=== PATIENT | male | born 1985 | race Caucasian/White ===

== ENCOUNTER 2022-10-23 16:48 | Emergency (ER) | payer OTHER ==
[~2022-10-23] VITALS: Ht 172.7 cm; Wt 92.5 kg
[2022-10-23 17:01] VITALS: BP 127/89; PULSE 72; RESP 18; TEMP 98.7; O2SAT 98
[2022-10-23] MEDS ORDERED: LIDOCAINE MPF 1% 10 MG/ML VIAL INJ ONE (17:35)
[2022-10-23] MEDS ORDERED: LIDOCAINE 2% 100 MG/5 ML UJET TP ONE (17:35)
[2022-10-23] MEDS ORDERED: KETOROLAC 30 MG/ML VIAL IM ONE (18:00)
[2022-10-23] MEDS ORDERED: KETOROLAC 30 MG/ML VIAL ONE (19:02)
[2022-10-23] MEDS ORDERED: HYDROcodone/APAP 5/325 MG 1 TAB TAB PO ONE (19:15)
[2022-10-23] MEDS ORDERED: IBUP-2213 PO (19:38)
[2022-10-23] MEDS ORDERED: ACET-8905 PO (19:38)
[2022-10-23 20:20] VITALS: BP 116/82; PULSE 85; RESP 20; TEMP 98.3; O2SAT 99
== END 2022-10-23 20:20 | disposition home or self-care (01) ==
LOC: EDSEX 16:48 → MED 16:48
DX: C49.22 Malignant neoplasm of connective and soft tissue of left lower limb, including hip (principal); Z79.899 Other long term (current) drug therapy
CPT/HCPCS: 10060; 73701; 96372; 99285; J1885; Q9967